=== PATIENT | female | born 2000 | race Caucasian/White ===

== ENCOUNTER 2021-11-30 00:30 | Emergency (ER) | payer OTHER ==
[~2021-11-30] VITALS: Ht 172.7 cm; Wt 59.1 kg
[2021-11-30 00:32] VITALS: TEMP 98
[2021-11-30 02:00] VITALS: BP 124/80; PULSE 60
== END 2021-11-30 02:00 | disposition home or self-care (01) ==
LOC: COL.ER 00:30
DX: S29.019A Strain of muscle and tendon of unspecified wall of thorax, initial encounter (principal); U09.9 Post COVID-19 condition, unspecified; X50.1XXA Overexertion from prolonged static or awkward postures, initial encounter
CPT/HCPCS: J1885